=== PATIENT | male | born 1990 | race Caucasian/White ===

== ENCOUNTER 2019-03-10 23:41 | Emergency (ER) | payer SELFPAY ==
[~2019-03-10] VITALS: Ht 167.6 cm; Wt 127.5 kg
[2019-03-10 23:46] VITALS: Ht 167.6 cm; Wt 127.5 kg
[2019-03-11 02:34] VITALS: BP 158/90
== END 2019-03-11 02:34 | disposition home or self-care (01) ==
LOC: ED 23:41
DX: G51.0 Bell's palsy (principal)

== ENCOUNTER 2020-04-18 22:49 | Emergency (ER) | payer MEDICAID ==
[~2020-04-18] VITALS: Ht 167.6 cm; Wt 133.4 kg
[2020-04-18 23:06] VITALS: Ht 167.6 cm; Wt 133.4 kg
[2020-04-19 00:18] VITALS: BP 151/99
== END 2020-04-19 00:18 | disposition home or self-care (01) ==
LOC: ED 22:49
DX: M25.512 Pain in left shoulder (principal); F17.210 Nicotine dependence, cigarettes, uncomplicated
CPT/HCPCS: J1885